=== PATIENT | female | born 1975 | race Caucasian/White ===

== ENCOUNTER 2019-02-14 21:32 | Emergency (ER) | payer MEDICAID ==
[~2019-02-14] VITALS: Ht 160 cm; Wt 62.6 kg
[~2019-02-14 21:32] MED LIST: HYDR-4011 PO; IBUP800T48 PO; NALO4SPR NS; ONDA4TAB14 PO
[2019-02-14 21:35] VITALS: Ht 160 cm; Wt 62.6 kg
[2019-02-14] MEDS ORDERED: KETOROLAC 15 MG INJ IV STA (21:55)
[2019-02-14] MEDS ORDERED: ONDANSETRON 4 MG INJ IV STA ×2 (21:55→23:21)
[2019-02-14] MEDS ORDERED: SOD CHLORIDE 0.9% 1,000 ML IV STA (21:55)
[2019-02-14] MEDS: morphine 4 MG/ML VIAL IV STA ×3 (21:55→23:47)
[2019-02-15 00:03] VITALS: BP 112/68; PULSE 75; RESP 16
== END 2019-02-15 00:04 | disposition home or self-care (01) ==
LOC: E/R 21:32
DX: K80.50 Calculus of bile duct without cholangitis or cholecystitis without obstruction (principal)
CPT/HCPCS: 36415; 76705; 80053; 81025; 83690; 85025; 96374; 96375; 96376; J1885; J2270; J2405; J7030; Z7502